=== PATIENT | female | born 2000 | race Hispanic/Latino ===

== ENCOUNTER 2024-07-11 19:30 | Emergency (ER) | payer OTHER ==
[2024-07-11 20:14] LABS: Bilirubin Negative (Negative); Blood, Urine Negative (Negative); Clarity Clear (Clear); Glucose, Urine (Dipstick) Negative (Negative); Ketone, Urine Negative (Negative); Leukocyte Large (Negative); Nitrite Negative (Negative); Protein, Urine (Dipstick) Negative (Neg-Trace); Urobilinogen 0.2 mg/dL (Less than 2)
[2024-07-11 20:15] LABS: Pregnancy Test - Urine (BHCG) Negative (Negative); Pregu Control Background? CLEAR/WHITE (CLR/WHITE); Pregu Control Bar Appear? YES (CONTROL BAR)
[2024-07-11 20:17] LABS: Bacteria/HPF Rare-Few HPF (None Seen); CAUTI Indications for Culture Spinal Cord Injury; RBC/HPF 0-3 HPF (0-3)
[2024-07-11 20:19] LABS: Urine Culture Reflex No No
[2024-07-11] MEDS ORDERED: Cyclobenzaprine 10 MG TAB ONE (20:47)
[2024-07-11] MEDS ORDERED: Naproxen 500 MG TAB ONE (20:47)
== END 2024-07-11 20:59 | disposition home or self-care (01) ==
LOC: NAV ERS 19:30
DX: S16.1XXA Strain of muscle, fascia and tendon at neck level, initial encounter (principal); S29.012A Strain of muscle and tendon of back wall of thorax, initial encounter; V43.62XA Car passenger injured in collision with other type car in traffic accident, initial encounter
CPT/HCPCS: 72125; 81001; 81025